=== PATIENT | female | born 1945 | race Caucasian/White ===

== ENCOUNTER 2017-10-30 10:56 | Inpatient (IN) | payer MEDICARE, BC ==
[2017-10-30 11:57] LABS: Glucose,Whole Blood 136 mg/dL (75-99)
[2017-10-30] MEDS: SODIUM CHLORIDE 0.9% 1,000 ML IV SCH (13:30)
[2017-10-30 13:33] LABS: Basophils % (A) 1 %; Eosinophils % (A) 1 %; HGB 14.9 gm/dL (11.4-16.0); Lymphocytes # (A) 1.2 k/uL (1.0-4.8); Lymphocytes % (A) 17 %; MCH 28.3 pg (25.0-35.0); MCHC 33.1 g/dL (31.0-37.0); MCV 85.5 fL (80.0-100.0); Mean Platelet Volume 6.4; Monocytes # (A) 0.3 k/uL (0-1.0); Monocytes % (A) 5 %; Neutrophils # (A) 5.6 k/uL (1.3-7.7); Neutrophils % (A) 76 %; Platelet Count 323 k/uL (150-450); RBC 5.26 m/uL (3.80-5.40); RDW 13.7 % (11.5-15.5); WBC 7.3 k/uL (3.8-10.6)
[2017-10-30 13:49] LABS: ALT 41 U/L (9-52); AST 28 U/L (14-36); Albumin 4.5 g/dL (3.5-5.0); Alkaline Phosphatase 88 U/L (38-126); Anion Gap 14 mmol/L; Blood Urea Nitrogen 12 mg/dL (7-17); Calcium 9.6 mg/dL (8.4-10.2); Carbon Dioxide 24 mmol/L (22-30); Chloride 102 mmol/L (98-107); Glucose 124 mg/dL (74-99); Potassium 4.2 mmol/L (3.5-5.1); Sodium 140 mmol/L (137-145); Total Bilirubin 0.5 mg/dL (0.2-1.3)
--- NOTE | 2017-10-30 14:25 | P.HPIM ---
History of Present Illness H&P Date: 10/30/17 Chief Complaint: GI bleed This is a 72-year-old female with a known history of diverticulitis, diabetes mellitus type 1, hyperlipidemia, hypertension and hypothyroidism. Patient reports about a week ago she did eat beets and drink juice. She started to have change in her bowel movements at that time which they were dark and maroonish in color. Patient has become more concerned because the red maroonish color in her stools have worsened over the last 3 days. She is still only having about one bowel movement a day. It is a soft consistency. Patient presented to Dr. Little's office for evaluation. And he directly admitted her to the hospital for a GI workup. She denies any nausea or vomiting. Denies any abdominal pain. Denies any chest pain or shortness of breath. Denies any fevers chills or sweats. Denies any burning with urination. Last EGD in 1989. Patient has never had a colonoscopy. She does take aspirin 81 mg twice a day at home. She denies any NSAID use or any alcohol use. She denies any smoking history. Hemoglobin on admission 14.9. GI has been consulted Review of Systems Please refer to HPI otherwise unremarkable Past Medical History Past Medical History: Diabetes Mellitus, GERD/Reflux, Hyperlipidemia, Hypertension, Thyroid Disorder Additional Past Medical History / Comment(s): IDDM type II with insulin pump managed at [facility], hypothyroid, diverticular disease, pneumonia immunization with cellulitis in that arm. History of Any Multi-Drug Resistant Organisms: None Reported Past Surgical History: Bladder Surgery, Hysterectomy Additional Past Surgical History / Comment(s): 1989 EGD, bladder suspension. Past Anesthesia/Blood Transfusion Reactions: No Reported Reaction Additional Past Anesthesia/Blood Transfusion Reaction / Comment(s): Pt received blood with childbirth. Smoking Status: Never smoker - Past Family History Father Family Medical History: Hyperlipidemia, Myocardial Infarction ([place]) Additional Family Medical History / Comment(s): Father at the age of 89yrs. Mother Family Medical History: Diabetes Mellitus, Hyperlipidemia, Myocardial Infarction ([place]) Additional Family Medical History / Comment(s): Mother at the age of 70yrs. Medications and Allergies Allergies Allergy/AdvReac Type Severity Reaction Status Date / Time bee venom protein (honey bee) Allergy Anaphylaxis Verified 10/30/17 12:20 shellfish derived [Shellfish] Allergy Anaphylaxis Verified 10/30/17 12:20 Sulfa (Sulfonamide Allergy Rash/Hives Verified 10/30/17 12:20 Antibiotics) Physical Exam Vitals: Intake and Output 10/29/17 10/30/17 10/30/17 22:59 06:59 14:59 Intake Total 50 Balance 50 Intake: Intake, IV Titration 50 Amount Sodium Chloride 0.9% 1, 50 000 ml @ 50 mls/hr IV . Q20H [facility] Rx#:[id number] Other: Weight 84.822 kg Head normocephalic Neck supple Lungs clear to auscultation bilaterally no wheezing or crackles Heart regular rate and rhythm S1-S2, no rub or gallop Abdomen is soft nontender nondistended positive bowel sounds no hepatosplenomegaly Extremities no edema Neuro alert and orientated to 3 Results CBC & Chem 7: 10/30/17 13:16 10/30/17 13:16 Labs: Abnormal Lab Results - Last 24 Hours (Table) 10/30/17 10/30/17 Range/Units 11:55 13:16 Glucose 124 H (74-99) mg/dL POC Glucose (mg/dL) 136 H (75-99) mg/dL Thrombosis Risk Factor Assmnt - Choose All That Apply Any of the Below Risk Factors Present?: Yes Each Factor Represents 1 point: Obesity (BMI >25) Other Risk Factors: Yes Each Risk Factor Represents 2 Points: Age 61-74 years Other congenital or acquired thrombophilia - If yes, enter type in comment: No Thrombosis Risk Factor Assessment Total Risk Factor Score: 3 Thrombosis Risk Factor Assessment Level: Moderate Risk Assessment and Plan Assessment: 1. GI bleed with maroonish color stools. Possibly related to diverticular bleed. Patient was placed on IV Protonix. GI service has been consulted. Continue with IV fluids. Hold aspirin. Patient has never had colonoscopy. Hemoglobin 14.9 2. Insulin-dependent diabetes mellitus type 1: Patient is on insulin pump and followed by endocrinology is out of [facility] 3. Hyperlipidemia 4. Essential hypertension 5. Hypothyroidism Patient's daughter supposed to bring medication list from home. Time with Patient: Greater than 30 (Greater than 60% of the total time spent in counseling and coordination of care.I performed an examination of the patient and discussed their management with the physician Vocational Education Professional. I have reviewed the Physician Vocational Education Professional's notes and agree with the documented findings and plan of care)
--- NOTE | 2017-10-30 14:50 | P.CONS ---
History of Present Illness - Reason for Consult Consult date: 10/30/17 Rectal bleeding Requesting physician: Hong Kearns - History of Present Illness 72-year-old female admitted with painless rectal bleeding. Patient states about 10 days ago she had sausage and beets followed by a few normal bowel movements but then 3-4 days later she developed looser burgundy Merlot colored mucoid bowel movements associated with some indigestion gassiness. She still passing blood tinged bowel movements last one was this morning. Hemoglobin 14.9. White count 7.3. BUN 12. Creatinine 0.6. She has no history of GI bleed or peptic ulcer disease. She had EGD performed more than 20 years ago. Additionally she reports a lower GI performed about 25 years ago for possible diverticulitis she is unsure. No history of colonoscopy. No weight loss gross hematemesis or melena. She takes aspirin 81 mg twice daily no NSAIDs or alcohol. Review of Systems Constitutional: Denies fever, chills, sweats, weight gain, or loss. HEENT: Negative for migraines, blurred vision or loss, earaches, drainage, tinnitus, oral mucosal lesions, dysphagia, or odynophagia. CARDIAC: Negative for chest pain, arrhythmias, or palpitation. RESPIRATORY: Negative for shortness of breath, hemoptysis, cough, or sputum production. GI: See HPI for pertinent findings. : Negative for hematuria, urgency, frequency, polyuria, or dysuria. GYNc: Negative vaginal discharge. MUSCULOSKELETAL: Negative for muscle aches, swelling, arthritis, and arthralgias. NEUROLOGIC: Negative for stroke or TIA. ENDOCRINE: Negative for thyroid problems. SKIN: Negative for rash or itching. PSYCHIATRIC: Negative history for depression and anxiety Past Medical History Past Medical History: Diabetes Mellitus, GERD/Reflux, Hyperlipidemia, Hypertension, Thyroid Disorder Additional Past Medical History / Comment(s): IDDM type II [facility] hypothyroid, diverticular disease, pneumonia immunization with cellulitis in that arm. History of Any Multi-Drug Resistant Organisms: None Reported Past Surgical History: Bladder Surgery, Hysterectomy Additional Past Surgical History / Comment(s): 1989 EGD, bladder suspension. Past Anesthesia/Blood Transfusion Reactions: No Reported Reaction Additional Past Anesthesia/Blood Transfusion Reaction / Comm: Pt received blood with childbirth. Smoking Status: Never smoker - Past Family History Father Family Medical History: Hyperlipidemia, Myocardial Infarction ([place]) Additional Family Medical History / Comment(s): Father at the age of 89yrs. Mother Family Medical History: Diabetes Mellitus, Hyperlipidemia, Myocardial Infarction ([place]) Additional Family Medical History / Comment(s): Mother at the age of 70yrs. Medications and Allergies Allergies Allergy/AdvReac Type Severity Reaction Status Date / Time bee venom protein (honey bee) Allergy Anaphylaxis Verified 10/30/17 14:49 shellfish derived [Shellfish] Allergy Anaphylaxis Verified 10/30/17 14:49 Sulfa (Sulfonamide Allergy Rash/Hives Verified 10/30/17 14:49 Antibiotics) Physical Exam Vitals: Vital Signs Temp Pulse Resp BP Pulse Ox 10/30/17 14:16 98.1 F 73 18 129/62 94 L Intake and Output 10/29/17 10/30/17 10/30/17 22:59 06:59 14:59 Intake Total 50 Balance 50 Intake: Intake, IV Titration 50 Amount Sodium Chloride 0.9% 1, 50 000 ml @ 50 mls/hr IV . Q20H [facility] Rx#:[id number] Other: Weight 84.822 kg General appearance: The patient is alert, oriented, in no acute distress. HET: Head is normocephalic and atraumatic. Pupils are equal and reactive. Oropharynx is clear without lesions. Neck: Supple without lymphadenopathy. Trachea midline. Heart: S1 S2. Regular rate and rhythm. Lungs: No crackles or wheezes are heard. Abdomen: Soft, nontender, nondistended with bowel sounds. No peritoneal signs. No palpable organomegaly or masses. Extremities: Normal skin color and turgor. No cyanosis, rash, ulceration, clubbing, or edema. Radial and pedal pulses are 2/4 bilaterally. Neurological: No focal deficits. Strength and sensation are grossly intact. Results CBC & Chem 7: 10/30/17 13:16 10/30/17 13:16 Labs: Abnormal Lab Results - Last 24 Hours (Table) 10/30/17 10/30/17 Range/Units 11:55 13:16 Glucose 124 H (74-99) mg/dL POC Glucose (mg/dL) 136 H (75-99) mg/dL Assessment and Plan (1) Rectal bleeding Narrative/Plan: 72-year-old female presents with intermittent rectal bleeding 1 week with increased indigestion gassiness with no history of colonoscopy or recent EGD. Possible colonic diverticular bleed possible colitis possible neoplasmhowever upper GI pathology cannot be excluded. Current Visit: Yes Status: Acute Code(s): K62.5 - HEMORRHAGE OF ANUS AND RECTUM SNOMED Code(s): 99985927 Plan: 1. Continue to observe patient overnight considering she passed a bloody bowel movement this morning. CBC in a.m. EGD colonoscopy was recommended and tentatively scheduled for . We'll reevaluate in the morning and proceed with bowel prep tomorrow afternoon. All questions were answered to her satisfaction. 2. Hold aspirin. 3. Protonix 40 mg daily. The filament coil winder has discussed the risks, benefits and alternative therapies for the above-mentioned procedure and for both sedation/analgesia as well as necessary blood product administration, if indicated, as they pertain to this patient. The patient has indicated understanding and acceptance of the risks and procedures discussed. Thank you for this kind referral and the opportunity to participate in the care of your patient. This consultation was discussed with Dr. Bermudez. The impression and plan of care have been directed as dictated.
[2017-10-30] MEDS: PANTOPRAZOLE 40 MG/10 ML VIAL IVP SCH (15:28)
[2017-10-30] MEDS ORDERED: ARTIFICIAL TEARS-HYPROMELLOSE DROPS 15 ML BTL BOTH EYES PRN (15:46)
[2017-10-30 17:00] LABS: Glucose,Whole Blood 93 mg/dL (75-99)
[2017-10-30] MEDS: Insulin Glulisine (For Pump) 100 UNIT/ML VIAL SQ-PUMP SCH (17:01)
[2017-10-30 20:21] LABS: Glucose,Whole Blood 163 mg/dL (75-99)
[2017-10-30] MEDS: CIPROFLOXACIN HCL 250 MG TAB PO SCH (20:37)
[2017-10-30 20:52] VITALS: RESP 16
[2017-10-30] MEDS ORDERED: ATORVASTATIN 20 MG TAB PO SCH (21:00)
[2017-10-30 21:18] LABS: Appearance,Urine Clear (Clear); Bilirubin,Urine Negative (Negative); Blood,Urine Negative (Negative); Color,Urine Colorless; Glucose,Urine (UA) Negative (Negative); Ketones,Urine 1+ (Negative); Leukocyte Esterase,Urine Small (Negative); Nitrite,Urine Negative (Negative); PH, Urine 6.5 (5.0-8.0); Protein,Urine Negative (Negative); RBC,Urine <1 /hpf (0-5); Specific Gravity,Urine 1.004 (1.001-1.035); Squamous Epithelial Cell,Urine <1 /hpf (0-4); Urobilinogen,Urine <2.0 mg/dL (<2.0); WBC,Urine 4 /hpf (0-5)
[2017-10-31] MEDS: LEVOTHYROXINE 88 MCG TAB PO SCH (05:20)
[2017-10-31 07:25] LABS: Glucose,Whole Blood 191 mg/dL (75-99)
[2017-10-31 07:49] LABS: Basophils % (A) 1 %; Eosinophils # (A) 0.2 k/uL (0-0.7); Eosinophils % (A) 3 %; HCT 40.8 % (34.0-46.0); HGB 13.4 gm/dL (11.4-16.0); Lymphocytes % (A) 18 %; MCH 28.3 pg (25.0-35.0); MCHC 32.7 g/dL (31.0-37.0); MCV 86.5 fL (80.0-100.0); Mean Platelet Volume 6.4; Monocytes # (A) 0.5 k/uL (0-1.0); Monocytes % (A) 8 %; Neutrophils % (A) 69 %; Platelet Count 277 k/uL (150-450); RBC 4.72 m/uL (3.80-5.40); RDW 13.8 % (11.5-15.5); WBC 5.8 k/uL (3.8-10.6)
[2017-10-31 08:03] LABS: ALT 33 U/L (9-52); AST 23 U/L (14-36); Albumin 3.9 g/dL (3.5-5.0); Alkaline Phosphatase 73 U/L (38-126); Anion Gap 11 mmol/L; Blood Urea Nitrogen 9 mg/dL (7-17); Calcium 9.1 mg/dL (8.4-10.2); Carbon Dioxide 26 mmol/L (22-30); Chloride 102 mmol/L (98-107); Glucose 154 mg/dL (74-99); Potassium 4.3 mmol/L (3.5-5.1); Sodium 139 mmol/L (137-145); Total Bilirubin 0.5 mg/dL (0.2-1.3); Total Protein 6.1 g/dL (6.3-8.2)
[2017-10-31] MEDS: CIPROFLOXACIN HCL 250 MG TAB PO SCH (08:05)
[2017-10-31] MEDS: SODIUM CHLORIDE 0.9% 1,000 ML IV SCH (08:10)
[2017-10-31] MEDS: B COMPLEX-VIT C-VIT E-ZINC 1 EACH TAB PO SCH (08:11)
[2017-10-31] MEDS: LISINOPRIL 20 MG TAB PO SCH (08:11)
[2017-10-31] MEDS: FUROSEMIDE 20 MG TAB PO SCH (08:11)
[2017-10-31] MEDS: CALCIUM CARBONATE 500 MG CHEWABLE PO SCH (08:11)
[2017-10-31] MEDS: POTASSIUM CHLORIDE ER 10 MEQ TAB.ER.PRT PO SCH (08:11)
[2017-10-31] MEDS: PANTOPRAZOLE 40 MG/10 ML VIAL IVP SCH (08:11)
[2017-10-31] MEDS: amLODIPine 5 MG TAB PO SCH (08:11)
[2017-10-31] MEDS ORDERED: NON-FORMULARY DRUG (Ubidecarenone [Co Q-10] 100 MG) PO SCH (09:00)
--- NOTE | 2017-10-31 10:25 | P.PN ---
Subjective Progress Note Date: 10/31/17 This is a 72-year-old female with a known history of diverticulitis, diabetes mellitus type 1, hyperlipidemia, hypertension and hypothyroidism. Patient reports about a week ago she did eat beets and drink juice. She started to have change in her bowel movements at that time which they were dark and maroonish in color. Patient has become more concerned because the red maroonish color in her stools have worsened over the last 3 days. She is still only having about one bowel movement a day. It is a soft consistency. Patient presented to Dr. Little's office for evaluation. And he directly admitted her to the hospital for a GI workup. She denies any nausea or vomiting. Denies any abdominal pain. Denies any chest pain or shortness of breath. Denies any fevers chills or sweats. Denies any burning with urination. Last EGD in 1989. Patient has never had a colonoscopy. She does take aspirin 81 mg twice a day at home. She denies any NSAID use or any alcohol use. She denies any smoking history. Hemoglobin on admission 14.9. GI has been consulted. On 10/31/2017 patient is alert and oriented 3 in no apparent distress she is still having bloody bowel movements otherwise she denies any complaints there is no fever or chills no headache or dizziness no chest pain no shortness of breath no cough no nausea or vomiting no abdominal pain and no urinary symptoms Objective - Vital Signs Vital signs: Vital Signs Temp 97.5 F L 10/31/17 05:16 Pulse 64 10/31/17 08:11 Resp 16 10/31/17 08:11 BP 119/57 10/31/17 05:16 Pulse Ox 97 10/31/17 05:16 Intake & Output 10/30/17 10/31/17 10/31/17 18:59 06:59 18:59 Intake Total 50 Balance 50 Weight 84.822 kg 84.822 kg Intake: Intake, IV Titration 50 Amount Sodium Chloride 0.9% 1, 50 000 ml @ 50 mls/hr IV . Q20H [facility] Rx#:[id number] Other: Voiding Method Toilet Toilet # Voids 1 1 - Exam Head normocephalic and atraumatic Neck supple Lungs clear to auscultation bilaterally no wheezing or crackles Heart regular rate and rhythm S1-S2, no rub or gallop Abdomen is soft nontender nondistended positive bowel sounds no hepatosplenomegaly Extremities no edema Neuro alert and orientated to 3 - Labs CBC & Chem 7: 10/31/17 07:13 10/31/17 07:13 Labs: Abnormal Lab Results - Last 24 Hours (Table) 10/30/17 10/30/17 10/30/17 Range/Units 11:55 13:16 20:20 Glucose 124 H (74-99) mg/dL POC Glucose (mg/dL) 136 H 163 H (75-99) mg/dL Total Protein (6.3-8.2) g/dL Urine Ketones (Negative) Ur Leukocyte Esterase (Negative) 10/30/17 10/31/17 10/31/17 Range/Units Unknown 07:09 07:13 Glucose 154 H (74-99) mg/dL POC Glucose (mg/dL) 191 H (75-99) mg/dL Total Protein 6.1 L (6.3-8.2) g/dL Urine Ketones 1+ H (Negative) Ur Leukocyte Esterase Small H (Negative) Microbiology - Last 24 Hours (Table) 10/30/17 Unknown Urine Culture - Preliminary Urine,Voided Assessment and Plan Plan: 1. GI bleed with maroonish color stools. Possibly related to diverticular bleed. Patient was placed on IV Protonix. GI service has been consulted. Continue with IV fluids. Hold aspirin. Patient has never had colonoscopy. Hemoglobin 14.9 2. Insulin-dependent diabetes mellitus type 1: Patient is on insulin pump and followed by endocrinology is out of [facility] 3. Hyperlipidemia 4. Essential hypertension 5. Hypothyroidism Patient is stable plan is per gastroenterology for EGD and colonoscopy tomorrow
[2017-10-31] MEDS: cefTRIAXone IN SWFI 1,000 MG/10 ML SYRINGE IVP SCH (10:53)
[2017-10-31] MEDS: CHOLECALCIFEROL 1,000 UNIT TAB PO SCH (11:06)
[2017-10-31] MEDS: MULTIVITAMINS, THERA 1 EACH TAB PO SCH (11:06)
--- NOTE | 2017-10-31 12:10 | P.PN ---
Subjective Progress Note Date: 10/31/17 Principal diagnosis: GI bleed No bloody BM yesterday evening but passed a smaller bloody mucoid BM this morning. Denies abdominal pain. Afebrile. HGB 13.4. Objective - Vital Signs Vital signs: Vital Signs Temp 97.5 F L 10/31/17 05:16 Pulse 64 10/31/17 08:11 Resp 16 10/31/17 08:11 BP 119/57 10/31/17 05:16 Pulse Ox 97 10/31/17 05:16 Intake & Output 10/30/17 10/31/17 10/31/17 18:59 06:59 18:59 Intake Total 50 Balance 50 Weight 84.822 kg 84.822 kg Intake: Intake, IV Titration 50 Amount Sodium Chloride 0.9% 1, 50 000 ml @ 50 mls/hr IV . Q20H [facility] Rx#:[id number] Other: Voiding Method Toilet Toilet # Voids 1 1 - Constitutional General appearance: Present: average body habitus - EENT Eyes: Present: normal appearance - Respiratory Respiratory: bilateral: CTA - Cardiovascular Rhythm: regular Heart sounds: normal: S1, S2 - Gastrointestinal Gastrointestinal Comment(s): nontender General gastrointestinal: Present: soft - Integumentary Integumentary: Present: normal turgor - Psychiatric Psychiatric: Present: A&O x's 3 - Labs CBC & Chem 7: 10/31/17 07:13 10/31/17 07:13 Labs: Abnormal Lab Results - Last 24 Hours (Table) 10/30/17 10/30/17 10/30/17 Range/Units 13:16 20:20 Unknown Glucose 124 H (74-99) mg/dL POC Glucose (mg/dL) 163 H (75-99) mg/dL Total Protein (6.3-8.2) g/dL Urine Ketones 1+ H (Negative) Ur Leukocyte Esterase Small H (Negative) 10/31/17 10/31/17 Range/Units 07:09 07:13 Glucose 154 H (74-99) mg/dL POC Glucose (mg/dL) 191 H (75-99) mg/dL Total Protein 6.1 L (6.3-8.2) g/dL Urine Ketones (Negative) Ur Leukocyte Esterase (Negative) Microbiology - Last 24 Hours (Table) 10/30/17 Unknown Urine Culture - Preliminary Urine,Voided Assessment and Plan (1) Rectal bleeding Narrative/Plan: 72-year-old female presents with intermittent rectal bleeding 1 week with increased indigestion gassiness with no history of colonoscopy or recent EGD. Possible colonic diverticular bleed possible colitis possible neoplasmhowever upper GI pathology cannot be excluded. Current Visit: Yes Status: Acute Code(s): K62.5 - HEMORRHAGE OF ANUS AND RECTUM SNOMED Code(s): 24063350 Plan: 1. EGD colonoscopy tomorrow. 2. Hold aspirin. 3. Protonix 40 mg daily. Assessment and plan of care discussed with Dr. Bermudez
[2017-10-31 12:16] LABS: Glucose,Whole Blood 181 mg/dL (75-99)
[2017-10-31] MEDS ORDERED: PEG 3350-NA SULF,BICARB,CL/KCL 4,000 ML BOTTLE PO ONE (15:00)
[2017-10-31] MEDS ORDERED: LACTATED RINGERS 1,000 ML IV SCH (15:30)
[2017-10-31] MEDS ORDERED: LIDOCAINE 1% 20 ML VIAL (10MG/ML) FOR IV START INTRADERMA PRN (15:30)
[2017-10-31] MEDS: Insulin Glulisine (For Pump) 100 UNIT/ML VIAL SQ-PUMP SCH (16:13)
[2017-10-31 17:19] LABS: Glucose,Whole Blood 222 mg/dL (75-99)
[2017-10-31 20:59] LABS: Glucose,Whole Blood 178 mg/dL (75-99)
[2017-10-31] MEDS ORDERED: ATORVASTATIN 40 MG TAB PO SCH (21:00)
[2017-11-01 05:54] VITALS: BP 122/60; PULSE 66; TEMP 98
[2017-11-01] MEDS: SODIUM CHLORIDE 0.9% 1,000 ML IV SCH ×2 (06:10→07:26)
[2017-11-01] MEDS: LEVOTHYROXINE 88 MCG TAB PO SCH (06:11)
[2017-11-01 07:30] LABS: Glucose,Whole Blood 96 mg/dL (75-99)
[2017-11-01 07:55] LABS: Basophils % (A) 1 %; Eosinophils # (A) 0.2 k/uL (0-0.7); Eosinophils % (A) 3 %; HCT 42.4 % (34.0-46.0); HGB 13.8 gm/dL (11.4-16.0); Lymphocytes # (A) 1.4 k/uL (1.0-4.8); Lymphocytes % (A) 25 %; MCH 27.9 pg (25.0-35.0); MCHC 32.6 g/dL (31.0-37.0); MCV 85.7 fL (80.0-100.0); Mean Platelet Volume 6.4; Monocytes # (A) 0.5 k/uL (0-1.0); Monocytes % (A) 9 %; Neutrophils # (A) 3.4 k/uL (1.3-7.7); Neutrophils % (A) 60 %; Platelet Count 283 k/uL (150-450); RBC 4.95 m/uL (3.80-5.40); WBC 5.6 k/uL (3.8-10.6)
[2017-11-01 08:10] LABS: ALT 29 U/L (9-52); AST 20 U/L (14-36); Alkaline Phosphatase 72 U/L (38-126); Anion Gap 11 mmol/L; Blood Urea Nitrogen 5 mg/dL (7-17); Calcium 9.4 mg/dL (8.4-10.2); Carbon Dioxide 30 mmol/L (22-30); Chloride 103 mmol/L (98-107); Glucose 96 mg/dL (74-99); Potassium 4.2 mmol/L (3.5-5.1); Sodium 144 mmol/L (137-145); Total Bilirubin 0.4 mg/dL (0.2-1.3); Total Protein 6.2 g/dL (6.3-8.2)
[2017-11-01] MEDS: CALCIUM CARBONATE 500 MG CHEWABLE PO SCH (09:11)
[2017-11-01] MEDS: PANTOPRAZOLE 40 MG/10 ML VIAL IVP SCH (09:11)
[2017-11-01] MEDS: cefTRIAXone IN SWFI 1,000 MG/10 ML SYRINGE IVP SCH (09:11)
[2017-11-01] MEDS: LISINOPRIL 20 MG TAB PO SCH (09:12)
[2017-11-01] MEDS: amLODIPine 5 MG TAB PO SCH (09:12)
[2017-11-01] MEDS: POTASSIUM CHLORIDE ER 10 MEQ TAB.ER.PRT PO SCH (09:13)
[2017-11-01] MEDS: FUROSEMIDE 20 MG TAB PO SCH (09:13)
[2017-11-01] MEDS: B COMPLEX-VIT C-VIT E-ZINC 1 EACH TAB PO SCH (09:14)
[2017-11-01] MEDS: MULTIVITAMINS, THERA 1 EACH TAB PO SCH (09:15)
[2017-11-01] MEDS: CHOLECALCIFEROL 1,000 UNIT TAB PO SCH (09:15)
[2017-11-01 11:41] LABS: Glucose,Whole Blood 85 mg/dL (75-99)
[2017-11-01] MEDS ORDERED: IV FLUID CONTINUATION 400 ML IV ONE (12:22)
[2017-11-01] MEDS ORDERED: LIDOCAINE 1% INJ 10MG/ML (20 ML MDV) ONE (12:23)
[2017-11-01] MEDS ORDERED: PROPOFOL 10 MG/ML 20 ML VIAL IV ONE (12:23)
--- NOTE | 2017-11-01 12:45 | P.PCN ---
Date of Procedure: 11/01/17 Procedure(s) Performed: Brief history: Patient is a pleasant 72-year-old white female, admitted hospital with acute GI bleed. She had multiple episodes of maroon colored stools but hemoglobin remained stable. She is hence scheduled for an upper endoscopy as well as colonoscopy as a part of evaluation of acute GI bleed. Procedure performed: Esophagogastroduodenoscopy Colonoscopy with biopsy Preoperative diagnosis: Acute GI bleed [place]est[place]: [facility] [place]: After informed consent was obtained from the patient was brought into the endoscopy unit and IV sedation was administered by anesthesia under continuous monitoring. Initially upper endoscopy was done. The Olympus GF 160 video endoscope was inserted inserted into the mouth and esophagus intubated without any difficulty and was gradually advanced into the stomach and duodenum and carefully examined. The bulb and second part of the duodenum appeared normal. The scope was then withdrawn into the stomach adequately insufflated with air and upon careful examination the antrum and body, cardia and fundus appeared normal. The scope was then withdrawn into the esophagus. The GE junction was located at 40 cm to the incisors. It appeared regular with no erythema erosions or ulcerations. Rest of the esophagus appeared normal. Patient tolerated the procedure well. At this time the patient continued to remain sedation. Initial digital rectal examination was normal. Olympus CF 160 video colonoscope was then inserted into the rectum and gradually advanced to the cecum without any difficulty. Careful examination was performed as the scope was gradually being withdrawn. The prep was excellent. The cecum, ascending colon, transverse colon, descending colon appeared normal. Scattered left sided diverticulosis seen. There was colitis with mucosal erythema friability and granularity noted in the sigmoid colon extending from 20-40 cm from the anal verge and multiple biopsies were done from this area. The rectum appeared normal. Retroflexion was performed in the rectum and no lesions were noted. Patient tolerated the procedure well. Impression: 1. Upper endoscopy showed a small hiatal hernia but no evidence of peptic ulcer disease or esophagitis 2 Colonoscopy revealed segmental colitis involving the sigmoid colon and scattered sigmoid diverticulosis. No active bleeding Recommendations: Findings of this examination were discussed with the patient as well as her family. She was advised to follow with the biopsy results. Diet will be advanced as tolerated. She'll follow up in office in 2 weeks.
--- NOTE | 2017-11-01 13:20 | P.DS ---
Providers Date of admission: 10/30/17 11:13 Expected date of discharge: 11/01/17 Attending physician: Hong Kearns Consults: 10/30/17 12:50 Consult Physician Routine Consulting Provider: Skyla Bermudez Consult Reason/Comments: GI bleed Do you want consulting provider notified?: Yes Placement Type Exists?: Yes Primary care physician: Hong Urmila [facility] Hospital Course: Diagnoses on discharge: 1. GI bleed with maroonish color stools. Possibly related to diverticular bleed. Patient was placed on IV Protonix. GI service has been consulted. Continue with IV fluids. Hold aspirin. Patient has never had colonoscopy. Hemoglobin 13.4 patient underwent EGD and colonoscopy that revealed: 1. Upper endoscopy showed a small hiatal hernia but no evidence of peptic ulcer disease or esophagitis 2. Colonoscopy revealed segmental colitis involving the sigmoid colon and scattered sigmoid diverticulosis. No active bleeding 2. Insulin-dependent diabetes mellitus type 1: Patient is on insulin pump and followed by endocrinology is out of [facility] 3. Hyperlipidemia 4. Essential hypertension 5. Hypothyroidism Hospital course: This is a 72-year-old female with a known history of diverticulitis, diabetes mellitus type 1, hyperlipidemia, hypertension and hypothyroidism. Patient reports about a week ago she did eat beets and drink juice. She started to have change in her bowel movements at that time which they were dark and maroonish in color. Patient has become more concerned because the red maroonish color in her stools have worsened over the last 3 days. She is still only having about one bowel movement a day. It is a soft consistency. Patient presented to Dr. Little's office for evaluation. And he directly admitted her to the hospital for a GI workup. She denies any nausea or vomiting. Denies any abdominal pain. Denies any chest pain or shortness of breath. Denies any fevers chills or sweats. Denies any burning with urination. Last EGD in 1989. Patient has never had a colonoscopy. She does take aspirin 81 mg twice a day at home. She denies any NSAID use or any alcohol use. She denies any smoking history. Hemoglobin on admission 14.9. GI has been consulted. On 10/31/2017 patient is alert and oriented 3 in no apparent distress she is still having bloody bowel movements otherwise she denies any complaints there is no fever or chills no headache or dizziness no chest pain no shortness of breath no cough no nausea or vomiting no abdominal pain and no urinary symptoms On 11/01/2017 patient is alert and oriented 3 she had no further episodes of bleeding, she underwent EGD and colonoscopy results as above, patient is stable she will be discharged home today, she will be followed by gastroenterology in 2 weeks for biopsy results review Plan - Discharge Summary Discharge Rx Participant: No New Discharge Prescriptions: Continue amLODIPine [Norvasc] 5 mg PO DAILY Aspirin EC [Ecotrin Low Dose] 81 mg PO BID Benazepril HCl [Lotensin] 20 mg PO DAILY Levothyroxine Sodium [Synthroid] 88 mcg PO DAILY Rosuvastatin [Crestor] 10 mg PO SUTUTHSA Alpha Lipoic Acid 50 mg PO DAILY Artificial Tears-Hypromellose [Artificial Tear Drops] 1 drops BOTH EYES TID PRN PRN Reason: Dry Eye(S) Ascorbic Acid [Vitamin C] 1,000 mg PO DAILY Calcium Carbonate [Calcium] 600 mg PO DAILY Cholecalciferol [Vitamin D3] 1,000 unit PO DAILY Cranberry 4200mg 4,200 mg PO DAILY EPINEPHrine [Epipen 2-Ryan] 0.3 mg IM ONCE PRN PRN Reason: Anaphylaxis Furosemide [Lasix] 20 mg PO DAILY Glucagon Emergency Kit 1 mg IM ONCE PRN PRN Reason: severe hypoglycemia Insulin Glulisine (For Pump) [Apidra (For Pump)] 0.01 units SQ-PUMP CONTINUOUS Multivitamins, Thera [Multivitamin (formulary)] 1 tab PO DAILY Potassium Chloride [Klor-Con 10] 10 meq PO DAILY Rosuvastatin [Crestor] 20 mg PO MOWEFR Ubidecarenone [Co Q-10] 100 mg PO DAILY Vitamin B Complex 1 cap PO DAILY Discontinued Ciprofloxacin HCl [Cipro] 250 mg PO Q12H Discharge Medication List Alpha Lipoic Acid 50 mg PO DAILY 10/30/17 [History] Artificial Tears-Hypromellose [Artificial Tear Drops] 1 drops BOTH EYES TID PRN 10/30/17 [History] Ascorbic Acid [Vitamin C] 1,000 mg PO DAILY 10/30/17 [History] Aspirin EC [Ecotrin Low Dose] 81 mg PO BID 10/30/17 [History] Benazepril HCl [Lotensin] 20 mg PO DAILY 10/30/17 [History] Calcium Carbonate [Calcium] 600 mg PO DAILY 10/30/17 [History] Cholecalciferol [Vitamin D3] 1,000 unit PO DAILY 10/30/17 [History] Cranberry 4200mg 4,200 mg PO DAILY 10/30/17 [History] EPINEPHrine [Epipen 2-Ryan] 0.3 mg IM ONCE PRN 10/30/17 [History] Furosemide [Lasix] 20 mg PO DAILY 10/30/17 [History] Glucagon Emergency Kit 1 mg IM ONCE PRN 10/30/17 [History] Insulin Glulisine (For Pump) [Apidra (For Pump)] 0.01 units SQ-PUMP CONTINUOUS 10/30/17 [History] Levothyroxine Sodium [Synthroid] 88 mcg PO DAILY 10/30/17 [History] Multivitamins, Thera [Multivitamin (formulary)] 1 tab PO DAILY 10/30/17 [History ] Potassium Chloride [Klor-Con 10] 10 meq PO DAILY 10/30/17 [History] Rosuvastatin [Crestor] 10 mg PO SUTUTHSA 10/30/17 [History] Rosuvastatin [Crestor] 20 mg PO MOWEFR 10/30/17 [History] Ubidecarenone [Co Q-10] 100 mg PO DAILY 10/30/17 [History] Vitamin B Complex 1 cap PO DAILY 10/30/17 [History] amLODIPine [Norvasc] 5 mg PO DAILY 10/30/17 [History]
== END 2017-11-01 14:50 | disposition home or self-care (01) | DRG 378 ==
LOC: 5MS5E 11:13
PROVIDERS: ADMIT Internal Medicine; ATTEND Internal Medicine
PROC: 0DBN8ZX Excision of Sigmoid Colon, Via Natural or Artificial Opening Endoscopic, Diagnostic (ICD-10-PCS; principal; 2017-10-30)
PROC: 0DJ08ZZ Inspection of Upper Intestinal Tract, Via Natural or Artificial Opening Endoscopic (ICD-10-PCS; principal; 2017-10-30)
DX: K57.31 Diverticulosis of large intestine without perforation or abscess with bleeding (principal); K50.10 Crohn's disease of large intestine without complications; N39.0 Urinary tract infection, site not specified; E03.9 Hypothyroidism, unspecified; E78.5 Hyperlipidemia, unspecified; I10 Essential (primary) hypertension; K44.9 Diaphragmatic hernia without obstruction or gangrene; K52.9 Noninfective gastroenteritis and colitis, unspecified; E11.9 Type 2 diabetes mellitus without complications; Z96.41 Presence of insulin pump (external) (internal); Z79.4 Long term (current) use of insulin; Z79.82 Long term (current) use of aspirin; Z82.49 Family history of ischemic heart disease and other diseases of the circulatory system; Z83.3 Family history of diabetes mellitus; Z90.710 Acquired absence of both cervix and uterus; Z88.2 Allergy status to sulfonamides; Z91.030 Bee allergy status; Z91.013 Allergy to seafood; Z79.890 Hormone replacement therapy; Z79.899 Other long term (current) drug therapy
CPT/HCPCS: 43235; 45380; 80053; 81001; 85025; 87086; 88305

== ENCOUNTER → 2018-02-21 | Outpatient (CLI) | payer MEDICARE, BC ==
--- NOTE | 2018-02-22 14:40 | MM ---
Reason for exam: screening (asymptomatic). Last mammogram was performed 2 years and 5 months ago. History: Patient is postmenopausal. Family history of breast cancer in maternal aunt at age 60. Benign stereotactic core biopsy of the right breast, May 08, 2002. Physical Findings: A clinical breast exam by your physician is recommended on an annual basis and results should be correlated with mammographic findings. MG 3D Screening Mammo W/Cad Bilateral CC and MLO view(s) were taken. Prior study comparison: September 13, 2015, left breast MG 3d diag mammo w/cad LT. March 03, 2015, left breast MG work up mamm w CAD LT. Finding #1: There is a typically benign equal density (isodense), circumscribed round mass in the upper outer quadrant, posterior position of the right breast. Finding #2: There are increaesd typically benign coarse segmental calcifications in the upper inner quadrant, middle position of the left breast. Previous mammotome biopsy in the right breast. There is a chronic nodularity in the left breast. New finding since September 13, 2015 and March 03, 2015. ASSESSMENT: Probably benign, BI-RAD 3 RECOMMENDATION: Follow-up diagnostic mammogram of both breasts in 6 months.
== END | disposition home or self-care (01) ==
LOC: RADMAMWWP 09:06
PROVIDERS: ATTEND Internal Medicine
DX: Z12.31 Encounter for screening mammogram for malignant neoplasm of breast (principal)
CPT/HCPCS: 77063; 77067

== ENCOUNTER → 2018-12-11 | Outpatient (CLI) | payer MEDICARE, BC ==
--- NOTE | 2018-12-11 11:18 | MM ---
Reason for exam: follow-up at short interval from prior study. Last mammogram was performed 10 months ago. History: Patient is postmenopausal. Family history of breast cancer in maternal aunt at age 60. Benign stereotactic core biopsy of the right breast, May 08, 2002. Physical Findings: Nurse did not find any significant physical abnormalities on exam. MG 3D Diag Mammo W/Cad KAYLEEN Bilateral CC and MLO view(s) were taken. Prior study comparison: February 21, 2018, bilateral MG 3d screening mammo w/cad. September 13, 2015, left breast MG 3d diag mammo w/cad LT. The breast tissue is heterogeneously dense. This may lower the sensitivity of mammography. Finding: There are typically benign stable coarse grouped/clustered calcifications in the upper outer quadrant, middle position of the left breast. Previous mammotome biopsy in the right breast. There is a chronic nodularity bilaterally. No significant changes in finding since February 21, 2018 and September 13, 2015. These results were verbally communicated with the patient and result sheet given to the patient on 12/11/18. ASSESSMENT: Benign, BI-RAD 2 RECOMMENDATION: Return to routine screening mammogram schedule for both breasts. Back on schedule.
--- NOTE | 2018-12-11 16:38 | BD ---
EXAMINATION TYPE: Axial Bone Density DATE OF EXAM: 12/11/2018 COMPARISON: 2002 CLINICAL HISTORY: disorder of bone Height: 5'2 05/29 Weight: 165 FRAX RISK QUESTIONS: Secondary Osteoporosis: 1. Type 1 Diabetes: y RISK FACTORS HISTORY OF: Postmenopausal woman: y If Premenopausal, do you have irregular periods: Take estrogen and/or progesterone medications: How long: Lost more than 2 inches in height since high school: Frequent falls: Poor Health: Hyperparathyroidism: Adrenal Insufficiency: MEDICATIONS: Thyroid Medications: Which medication: Synthroid How Lon years Additional Medications: insulin, blood pressure, cholesterol Additional History: EXAM MEASUREMENTS: Bone mineral densitometry was performed using the [employer] System. Bone mineral density as measured about the Lumbar spine is: ----- L1-L4(G/cm2): 1.034 T Score Values are as follows: ----- L2: -0.7 ----- L3:0.1 ----- L4: -1.8 ----- L1-L4: -1.2 Bone mineral density has: Decreased -2.9% since study of: 04/17/2003 Bone mineral density about the R hip (g/cm2): 0.846 Bone mineral density about the L hip (g/cm2): 0.878 T Score values are as follows: -----R Neck: -1.4 -----L Neck: -1.2 -----R Total: -1.1 -----L Total: -0.6 Bone mineral density has: Decreased -24.5% since study of: 04/17/2003 IMPRESSION: Osteopenia (T Score between -2.5 and -1). There is slightly increased risk of fracture and the patient may be considered for treatment. Re-Screen 2-5 years. NOTE: T-SCORE=SD OF THE YOUNG ADULT MEAN.
== END | disposition home or self-care (01) ==
LOC: RADBDWWP 09:11
PROVIDERS: ATTEND Internal Medicine
DX: M85.80 Other specified disorders of bone density and structure, unspecified site (principal); M81.0 Age-related osteoporosis without current pathological fracture
CPT/HCPCS: 77080; 77066; G0279; 77062